=== PATIENT | male | born 1980 | race Caucasian/White ===

== ENCOUNTER 2020-11-04 13:20 | Outpatient (CLI) | payer OTHER ==
[2020-11-04 14:07] VITALS: BP 126/92
--- NOTE | 2020-11-04 14:07 | SLEEP CARE CONSULTATION ---
Information from patient questionnaire entered by Peg Ochoa. I have reviewed and concur with the information entered by Peg Ochoa. This document represents the service I personally performed and the decisions made by me, Sayra Rocha ARNP. History of Present Illness Service Date and Time: 11/04/2020 1320 Reason for Visit: New patient Chief Complaint: reports: Snoring, Excessive daytime sleepiness, Other (low heartrate while sleeping/bradycardia). denies: Observed pauses in breathing Date of Onset: 2 month Usual bedtime: 11 pm Time it takes to fall asleep: 20-30 minutes Snores at night: Yes Observed to quit breathing while asleep: No Sleeps alone due to snoring: No Number of times waking at night: 1 Reasons for waking at night: reports: Bathroom, Other (unknown reason). denies: Choking, Gasping for air Toss, Turn, or Twitch while sleeping: Yes Recalls having dreams: Yes Usually gets out of bed at: 7 am Feels refreshed in the morning: Yes Morning headache: No Sleepy or fatigued during the day: Yes Ever fallen asleep while driving: No (no drowsy driving) Takes day naps: Yes (1x week for an hour or more) Dreams during day naps: Yes Prior sleep studies: No Additional HPI information: I had the pleasure of seeing ANTONI MUNIZ today regarding the possibility of him having a sleep disorder. His current complaint is a low heart rate/bradycardia. He has an apple watch has been notifying him that in the last couple months the his heart rate under 50 for 10+ minutes. He is very tired during the day but does not take a nap usually. He states if he does lay down during the day he will fall asleep. He does snore but according to his it is not very much. He has issues with nasal congestion that improved about a year ago. His has not noticed pauses in breathing, gasping or choking in his sleep. Both of his parents have sleep apnea but his father is the only one who uses his CPAP. 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 Patient is and lives in [place]. Have you smoked in the past 12 months: Yes Cigarettes per day (20/pack): 0 (vape) Alcohol use: Yes Alcohol amount and frequency: 2-3 drinks a week Caffeine use: Yes Caffeine amount and frequency: 2 cups of coffee daily Family History Family history of sleep disordered breathing: Yes Family Hx Sleep Apnea: Mother: Sleep apnea - Treated, Father: Snoring, Sleep apnea - Treated Allergies and Home Medications Drug allergies reviewed: Yes (NKDA) Home medication list reviewed: Yes Allergy and home medication list: Lamotrigine Multivitamin B12 Fiber Vitamin D, once a week Review of Systems Cardiovascular: denies: high blood pressure Gastrointestinal: denies: heartburn, difficulty swallowing Neurological: denies: headaches Psychiatric: reports: mood disorder Ear/Nose/Throat: reports: wisdom teeth removed. denies: injury to nose, tonsillectomy Immunologic: denies: allergies to food or environment Physical Exam Blood Pressure: 126/92 Cuff size: wrist Heart Rate: 77 O2 Saturation: 98 Height: 6 ft 2 in Weight: 215 lb Body Mass Index: 27.6 BMI Classification: Overweight Neck circumference: 15.25 (inches) Nostrils: patent to airflow Mouth and throat: narrow oropharynx Soft palate: normal Hard palate: normal Uvula: normal Uvula visualization: 100% Mallampati Class I Tongue: normal in size Tonsils: small Chin and jaw: normal size and position Neck: normal w/o lymphadenopathy or thyromegaly Heart: regular rate and rhythm Lungs: clear bilaterally Impression and Plan 1. Suspected Obstructive Sleep Apnea-Hypopnea Syndrome, as suggested by a history of loud and irregular snoring, unrefreshed sleep, cognitive impairment, and excessive daytime sleepiness. Narrow oropharynx and obesity are common predisposing factors for obstructive sleep apnea-hypopnea syndrome. I recommend proceeding to polysomnography to confirm the diagnosis and to assess severity. If the patient has significant sleep disordered breathing, a manual CPAP titration study will also be performed to find the optimal treatment pressure. I informed the patient of what the sleep studies involve and after some discussion, obtained agreement to proceed. The pathophysiology of obstructive sleep apnea-hypopnea syndrome was discussed with the patient and health risks of cardiovascular and cerebrovascular disease if not treated. AAS brochure for obstructive sleep apnea-hypopnea syndrome given and reviewed. Risks of drowsy driving discussed in detail and patient advised to avoid long distance driving and to tail puller at the first sign of drowsiness. Patient agreed to plan. * Schedule polysomnography +- manual CPAP titration study and return in 1-2 weeks after the study to discuss result and initiate therapy. * Avoid long distance driving or driving when feeling sleepy. * Avoid alcohol, sedative and muscle relaxant around bedtime. * Attempt to lose weight. * Review instructions provided by trained office staff on how to prepare for the sleep study. * Return for follow-up after sleep study completed. Counseling Topics: Weight loss health impact Visit Type: In Office Time Spent with Patient (minutes): 30 Provider Statement: I spent 100% of the Face to Face Visit with the patient with greater than 50% spent counseling the patient and coordination of care.
== END 2020-11-04 13:21 | disposition home or self-care (01) ==
LOC: SC 13:20
PROVIDERS: ATTEND Nurse Practitioner Family
DX: G47.10 Hypersomnia, unspecified (principal); F17.290 Nicotine dependence, other tobacco product, uncomplicated; R06.83 Snoring; G47.8 Other sleep disorders; R41.89 Other symptoms and signs involving cognitive functions and awareness
CPT/HCPCS: 99203; 99212

== ENCOUNTER 2020-11-11 09:54 | Outpatient (CLI) | payer OTHER | END 2020-11-11 09:55 | disposition home or self-care (01) | LOC: SC 09:54 | PROVIDERS: ATTEND Nurse Practitioner Family | DX: G47.33 Obstructive sleep apnea (adult) (pediatric) (principal); R09.02 Hypoxemia; E66.3 Overweight; Z68.27 Body mass index [BMI] 27.0-27.9, adult | CPT/HCPCS: 95806 ==

== ENCOUNTER 2020-11-25 09:11 | Outpatient (CLI) | payer OTHER ==
--- NOTE | 2020-11-25 09:35 | SLEEP CARE CONSULTATION ---
Information from patient questionnaire entered by Peg Ochoa. I have reviewed and concur with the information entered by Peg Ochoa. This document represents the service I personally performed and the decisions made by , Sayra Rocha ARNP. History of Present Illness Service Date and Time: 11/25/2020 0911 Initial Ellsworth Sleepiness Scale score: 8 (in 2020) Current Ellsworth Sleepiness Scale score: 13 Additional HPI information: ANTONI MUNIZ returns for follow up and results of the recently performed home sleep study. I explained the pathophysiology behind obstructive sleep apnea. We then spent quite a bit of time discussing different treatment options. For mild obstructive sleep apnea, surgery and oral appliance are alternatives to nasal CPAP therapy but in moderate or severe cases, nasal CPAP is the most effective and reliable treatment. Because apnea is primarily in supine position, then positional management therapy could be effective. Methods discussed such as positioning with pillows, using a T-shirt with tennis balls in the back, and shown commercial products that have a pillow format on back to prevent supine sleep. I reviewed the impact of weight changes on sleep apnea and strongly recommended losing weight. Patient counseled not drink alcohol less than 4 hours before bedtime as it can increase snoring and apnea. Patient was cautioned about risks of drowsy driving until sleepiness symptoms resolve. Sleep Study - Results Type of Sleep Study: Home sleep study Prior sleep studies: No Polysomnography/Home Sleep Study results: Physician Impression: The quality of the study is good. The length of the study is adequate (> 240 minutes). Please also see the tabulated and graphic data. 1. Obstructive Sleep Apnea-Hypopnea (ICD-10 G47.33), mild, with an AHI of 6.2/hr and maik SaO2 of 88%. During the study, the patient had 24 apneas (23 obstructive, 0 central, 1 mixed) and 20 hypopneas. The longest episode lasted 75.5 seconds. The respiratory events occurred almost exclusively during supine sleep (supine AHI was 12.5 and non-supine, 1.47). 2. Hypoxemia (ICD-10 R09.02), minimal, with the lowest oxygen saturation of 88 % and 0.5 minutes with SaO2 under 90%. Baseline oxygen saturation was normal (Average oxygen saturation was 93%). Allergies and Home Medications Home medication list reviewed: Yes (no changes) Review of Systems Review of systems same as previous: Yes (no changes) Physical Exam Heart Rate: 81 O2 Saturation: 98 Height: 6 ft 2 in Weight: 217 lb Body Mass Index: 27.8 BMI Classification: Overweight Impression and Plan 1. Obstructive Sleep Apnea-Hypopnea Syndrome, mild, with lowest oxygen saturation of 88%. Obviously this is the cause of the patients symptoms of unrefreshed sleep, and excessive daytime sleepiness. Positive pressure therapy could benefit mood disorders. Since patients apnea is primarily in supine position, patient advised to try positional therapy and agreed with plan. He is also advised to lose weight as this will reduce snoring and apnea. An oral appliance can also be used for snoring but often is not covered by insurance. Follow up is scheduled for one month to check effectiveness and if further evaluation indicated such a repeat study in supine position only to see if additional treatment indicated. 2. Hypoxemia, minimal, with the lowest oxygen saturation of 88 % and 0.5 minutes with SaO2 under 90%. His baseline oxygen saturation was normal with an average oxygen saturation of 93%. * Positional therapy * Attempt to lose weight. * Avoid alcohol consumption near bedtime. * Avoid supine sleep until using CPAP. * The patient is again cautioned about driving until sleepiness completely resolves. * Return one month after CPAP obtained. I will assess response to therapy and compliance at that time. Counseling Topics: Weight loss health impact Visit Type: In Office Time Spent with Patient (minutes): 14 Provider Statement: I spent 100% of the Face to Face Visit with the patient with greater than 50% spent counseling the patient and coordination of care.
== END 2020-11-25 09:12 | disposition home or self-care (01) ==
LOC: SC 09:11
PROVIDERS: ATTEND Nurse Practitioner Family
DX: G47.33 Obstructive sleep apnea (adult) (pediatric) (principal); R09.02 Hypoxemia
CPT/HCPCS: 99212

== ENCOUNTER 2020-12-25 09:12 | Outpatient (CLI) | payer OTHER ==
[2020-12-25 09:37] VITALS: BP 110/72
--- NOTE | 2020-12-25 09:37 | SLEEP CARE CONSULTATION ---
Information from patient questionnaire entered by Zuleika Wilson. I have reviewed and concur with the information entered by Zuleika Wilson. This document represents the service I personally performed and the decisions made by me, Sayra Rocha ARNP. History of Present Illness Service Date and Time: 12/25/2020 0912 Previous diagnosis: Mild, Obstructive Sleep Apnea-Hypopnea Syndrome AHI: 6.2 Reason for follow up: one month (positional therapy) Prior sleep studies: Yes Year and Where: 10/2020 [facility] Type of Sleep Study: Home sleep study HPI additional information: ANTONI MUNIZ was diagnosed to have mild, AHI 6.2, obstructive sleep apnea-hypopnea syndrome and returned today for Positional therapy one month follow-up. Sleep Study - Results Type of Sleep Study: Home sleep study Prior sleep studies: Yes Year and Where: 10/2020 [facility] [facility] CPAP Compliance Data Compliance data discussion: Patient bought a sleep noodle but he is ending up rolling over and sleeping on it and causing back pain. He is doing this while asleep. He is not able to sleep well using positional therapy. Subjective Initial Edwards Sleepiness Scale score: 8 (in 2020) Current Edwards Sleepiness Scale score: 10 Allergies and Home Medications Home medication list reviewed: Yes (Clobetosol propionate solution/ointment for Lichen planus) Review of Systems Review of systems same as previous: Yes (no changes) Physical Exam Blood Pressure: 110/72 Cuff size: long Heart Rate: 63 O2 Saturation: 97 Height: 6 ft 2 in Weight: 214 lb Body Mass Index: 27.4 BMI Classification: Overweight Impression and Plan 1. Obstructive Sleep Apnea-Hypopnea Syndrome, mild. Using positional therapy, the patient has not been able to get better sleep quality or feel more rested overall. He has not been able to stay off his back and is still feeling tired. He would like to check into the oral appliance. After some discussion, the patient has opted to go with the oral appliance. A list of accredited dentists in general area to call for a consult was given to patient. A prescription was given to start process. Patient advised to check insurance to see if oral appliance is covered. Some dentists do not take Medicare. I will have patient follow up in 3 months to check effectiveness of treatment. If reduction of symptoms and comfortable with treatment, a polysomnography will be ordered using the oral appliance to check efficacy of treatment. If patient decides against the oral appliance he was instructed to call and we can start a different therapy like the CPAP. Patient was encouraged to lose weight for their overall health and to reduce apneas. Patient voiced understanding and agreement with plan. Patient's apnea severity and rationale for treatment to reduce apnea, improve sleep quality and reduce cardiovascular and cerebrovascular events was reviewed. * start/check into Oral appliance therapy * Attempt to lose weight * Avoid sleeping supine until able to use the oral appliance * Call this office if any problems or for change in therapy * Return for follow up in 3 months, or sooner if concerns arise Counseling Topics: Weight loss health impact Follow up with: Other (Dentist for oral appliance) Visit Type: In Office Time Spent with Patient (minutes): 18 Provider Statement: I spent 100% of the Face to Face Visit with the patient with greater than 50% spent counseling the patient and coordination of care.
== END 2020-12-25 09:13 | disposition home or self-care (01) ==
LOC: SC 09:12
PROVIDERS: ATTEND Nurse Practitioner Family
DX: G47.33 Obstructive sleep apnea (adult) (pediatric) (principal)
CPT/HCPCS: 99212